=== PATIENT | male | born 1960 | race Caucasian/White ===

== ENCOUNTER 2018-03-20 10:26 | Emergency (ER) | payer OTHER ==
[2018-03-20] MEDS ORDERED: Sodium Chloride 0.9% 10 ML Syringe FLUSH PRN (10:48)
--- NOTE | 2018-03-20 10:53 | EDM.PDOC ---
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 No prior h/o CAD. Onset: Today Duration: Hour(s): (1) Quality: Reports: Dull Severity: Moderate Worsens with: Denies: Breathing, Movement Associated Symptoms: Reports: Diaphoresis Posterior head & neck Pain Score (Numeric/FACES): 5 L anterior chest & L jaw & neck Pain Score (Numeric/FACES): 4 - Related Data Allergies Allergy/AdvReac Type Severity Reaction Status Date / Time No Known Allergies Allergy Verified 03/17/14 10:23 Home Meds: Home Meds Naproxen 500 mg PO BID 03/17/14 [History] Past Medical History - Past Health History Medical/Surgical History: Denies Medical/Surgical History Cardiovascular History: Denies: CAD, [place] Neurological History: Denies: Cerebral Aneurysms Social & Family History - Family History Cardiac: Reports: None - Tobacco Use Smoking Status *Q: Never Smoker - Alcohol Use Alcohol Use History: Yes Alcohol Use Frequency: Rarely - Recreational Drug Use Recreational Drug Use: No ED ROS GENERAL - Review of Systems Review Of Systems: ROS reveals no pertinent complaints other than HPI. ED EXAM, GENERAL - Physical Exam Exam: See Below Exam Limited By: No Limitations General Appearance: Alert, WD/WN, No Apparent Distress Eye Exam: Bilateral Eye: Foreign Body, PERRL Ears: Normal External Exam Nose: Normal Inspection Throat/Mouth: No Airway Compromise Head: Atraumatic, Normocephalic Neck: Full Range of Motion Respiratory/Chest: No Respiratory Distress, Lungs Clear, Normal Breath Sounds Cardiovascular: Regular Rate, Rhythm, No Murmur (Male) Exam: Deferred Rectal (Males) Exam: Deferred Back Exam: Full Range of Motion Extremities: Normal Range of Motion Neurological: Alert, No Motor/Sensory Deficits Psychiatric: Normal Affect, Normal Mood Skin Exam: Warm, Dry, Intact EKG INTERPRETATION EKG Date: 03/20/18 Time: 10:36 Rhythm: NSR Rate (Beats/Min): 74 [place]: Normal P-Wave: Present QRS: RBBB ST-T: Normal QT: Normal Comparison: NA - No Prior EKG EKG Interpretation Comments: EKG #2 @15:59 shows no changes Course - Vital Signs Last Recorded V/S: Last Vital Signs Temp 36.8 C 03/20/18 10:28 Pulse 78 03/20/18 16:13 Resp 18 03/20/18 10:28 BP 132/73 03/20/18 16:13 Pulse Ox 99 03/20/18 10:28 - Orders/Labs/Meds Orders: Active Orders 24 hr Category Date Time Status Ang Chest [CT] Stat Exams 03/20/18 14:28 Taken Chest 2V [CR] Stat Exams 03/20/18 10:45 Taken Head wo Cont [CT] Stat Exams 03/20/18 10:46 Taken Sodium Chloride 0.9% [Normal Saline] 1,000 ml Med 03/20/18 11:00 Active IV ASDIRECTED Sodium Chloride 0.9% [Saline Flush] Med 03/20/18 10:48 Active 10 ml FLUSH ASDIRECTED PRN Saline Lock Insert [OM.PC] Routine Oth 03/20/18 10:48 Ordered EKG 12 Lead [EK] Stat Ther 03/20/18 10:45 Ordered EKG 12 Lead [EK] Stat Ther 03/20/18 15:56 Ordered Medication Orders Sodium Chloride (Normal Saline) 1,000 mls @ 200 mls/hr IV ASDIRECTED JASBIR Last Admin: 03/20/18 11:30 Dose: 200 mls/hr Sodium Chloride (Saline Flush) 10 ml FLUSH ASDIRECTED PRN PRN Reason: Keep Vein Open Last Admin: 03/20/18 10:50 Dose: 10 ml Labs: Laboratory Tests 03/20/18 03/20/18 03/20/18 Range/Units 10:40 10:40 10:40 WBC 3.8 L (4.5-12.0) X10-3/uL RBC 4.72 (4.30-5.75) x10(6)uL Hgb 15.1 (11.5-15.5) g/dL Hct 44.3 (30.0-51.3) % MCV 93.9 (80-96) fL MCH 31.9 (27.7-33.6) pg MCHC 34.0 (32.2-35.4) g/dL RDW 12.9 (11.5-15.5) % Plt Count 127 (125-369) X10(3)uL MPV 8.6 (7.4-10.4) fL Neut % (Auto) 63.7 (46-82) % Lymph % (Auto) 27.4 (13-37) % Keith % (Auto) 7.2 (4-12) % Eos % (Auto) 1 (1.0-5.0) % Baso % (Auto) 1 (0-2) % Neut # (Auto) 2.5 (1.6-8.3) # Lymph # (Auto) 1.0 (0.6-5.0) # Keith # (Auto) 0.3 (0.0-1.3) # Eos # (Auto) 0.0 (0.0-0.8) # Baso # (Auto) 0.0 (0.0-0.2) # PT 10.2 (8.7-11.1) INR 1.05 (0.89-1.13) D-Dimer, Quantitative (0.0-0.59) mg/LFEU Sodium 138 (135-145) mmol/L Potassium 4.2 (3.5-5.3) mmol/L Chloride 102 (100-110) mmol/L Carbon Dioxide 26 (21-32) mmol/L BUN 13 (7-18) mg/dL Creatinine 1.0 (0.70-1.30) mg/dL Est Cr Clr Drug Dosing TNP Estimated GFR (MDRD) > 60 (>60) BUN/Creatinine Ratio 13.0 (9-20) Glucose 212 H (80-116) mg/dL Calcium 9.4 (8.6-10.2) mg/dL Total Bilirubin 0.9 (0.1-1.3) mg/dL AST 38 H (5-25) IU/L ALT 84 H (12-36) U/L Alkaline Phosphatase 49 L (56-112) IU/L Troponin I (<0.017-0.056) ng/mL Total Protein 7.7 (6.0-8.0) g/dL Albumin 3.9 (3.5-5.2) g/dL Globulin 3.8 g/dL Albumin/Globulin Ratio 1.0 09/19/18 09/19/18 09/19/18 Range/Units 10:40 10:40 14:45 WBC (4.5-12.0) X10-3/uL RBC (4.30-5.75) x10(6)uL Hgb (11.5-15.5) g/dL Hct (30.0-51.3) % MCV (80-96) fL MCH (27.7-33.6) pg MCHC (32.2-35.4) g/dL RDW (11.5-15.5) % Plt Count (125-369) X10(3)uL MPV (7.4-10.4) fL Neut % (Auto) (46-82) % Lymph % (Auto) (13-37) % Keith % (Auto) (4-12) % Eos % (Auto) (1.0-5.0) % Baso % (Auto) (0-2) % Neut # (Auto) (1.6-8.3) # Lymph # (Auto) (0.6-5.0) # Keith # (Auto) (0.0-1.3) # Eos # (Auto) (0.0-0.8) # Baso # (Auto) (0.0-0.2) # PT (8.7-11.1) INR (0.89-1.13) D-Dimer, Quantitative 7.11 H (0.0-0.59) mg/LFEU Sodium (135-145) mmol/L Potassium (3.5-5.3) mmol/L Chloride (100-110) mmol/L Carbon Dioxide (21-32) mmol/L BUN (7-18) mg/dL Creatinine (0.70-1.30) mg/dL Est Cr Clr Drug Dosing Estimated GFR (MDRD) (>60) BUN/Creatinine Ratio (9-20) Glucose (80-116) mg/dL Calcium (8.6-10.2) mg/dL Total Bilirubin (0.1-1.3) mg/dL AST (5-25) IU/L ALT (12-36) U/L Alkaline Phosphatase (56-112) IU/L Troponin I < 0.017 L < 0.017 L (<0.017-0.056) ng/mL Total Protein (6.0-8.0) g/dL Albumin (3.5-5.2) g/dL Globulin g/dL Albumin/Globulin Ratio Meds: Medications Generic Name Dose Route Start Last Admin Trade Name Freq PRN Reason Stop Dose Admin Sodium Chloride 1,000 mls @ 200 mls/hr 03/20/18 11:00 03/20/18 11:30 Normal Saline IV 200 mls/hr ASDIRECTED JASBIR Administration Sodium Chloride 10 ml 03/20/18 10:48 03/20/18 10:50 Saline Flush FLUSH 10 ml ASDIRECTED PRN Administration Keep Vein Open Discontinued Medications Generic Name Dose Route Start Last Admin Trade Name Freq PRN Reason Stop Dose Admin Aspirin 324 mg 03/20/18 12:06 03/20/18 10:35 Aspirin PO 03/20/18 12:07 324 mg ONETIME ONE Administration Iopamidol 80 ml 03/20/18 14:19 03/20/18 14:33 Isovue-370 (76%) IV 03/20/18 14:20 80 ml . DIRECTED ONE Administration Metoprolol Tartrate 25 mg 03/20/18 15:59 03/20/18 16:13 Lopressor PO 03/20/18 16:00 25 mg ONETIME ONE Administration Morphine Sulfate 4 mg 03/20/18 14:15 03/20/18 14:55 Morphine IVPUSH 03/20/18 14:16 Not Given ONETIME ONE Morphine Sulfate Confirm 03/20/18 14:45 03/20/18 14:54 Morphine Sulfate Administered 03/20/18 14:46 4 mg Dose Administration 4 mg .ROUTE .STK-MED ONE Morphine Sulfate 4 mg 03/20/18 16:18 Morphine IVPUSH 03/20/18 16:19 ONETIME ONE Nitroglycerin 0.4 mg 03/20/18 12:06 03/20/18 12:45 Nitrostat SL 0.4 mg Q5M PRN Administration Chest Pain Ondansetron HCl 4 mg 03/20/18 14:16 03/20/18 14:52 Zofran IVPUSH 03/20/18 14:17 4 mg ONETIME ONE Administration Pantoprazole Sodium 40 mg 03/20/18 13:08 03/20/18 13:18 Protonix Iv IVPUSH 03/20/18 13:09 40 mg ONETIME ONE Administration - Radiology Interpretation Free Text/Narrative:: CXR: NAD CT Head: NAD CTA Chest: Suboptimal opacification of the pulmonary arteries. No large central pulmonary embolus is identified, the remainder of the pulmonary arteries cannot be adequately evaluated. - Re-Assessments/Exams Free Text/Narrative Re-Assessment/Exam: 03/20/18 16:27 Minimal improvement after NTG and Morphine. 03/20/18 16:31 Dr. Saucedo accepts patient for transfer to [facility]. Departure - Departure Time of Disposition: 16:31 Disposition: DC/Tfer to [facility] 02 Reason for Transfer *Q: Other (Cardiology consult) Condition: Fair Clinical Impression: Chest pain Qualifiers: Chest pain type: unspecified Qualified Code(s): R07.9 - Chest pain, unspecified Referrals: [facility] [place], [employer]ATOR [employer]ER [Primary Care Provider] - Forms: ED Department Discharge - My Orders Last 24 Hours: My Active Orders 03/20/18 10:45 Chest 2V [CR] Stat EKG 12 Lead [EK] Stat 03/20/18 10:46 Head wo Cont [CT] Stat 03/20/18 10:48 Sodium Chloride 0.9% [Saline Flush] 10 ml FLUSH ASDIRECTED PRN Saline Lock Insert [OM.PC] Routine 03/20/18 11:00 Sodium Chloride 0.9% [Normal Saline] 1,000 ml IV ASDIRECTED 03/20/18 14:28 Ang Chest [CT] Stat 03/20/18 15:56 EKG 12 Lead [EK] Stat - Assessment/Plan Last 24 Hours: My Active Orders 03/20/18 10:45 Chest 2V [CR] Stat EKG 12 Lead [EK] Stat 03/20/18 10:46 Head wo Cont [CT] Stat 03/20/18 10:48 Sodium Chloride 0.9% [Saline Flush] 10 ml FLUSH ASDIRECTED PRN Saline Lock Insert [OM.PC] Routine 03/20/18 11:00 Sodium Chloride 0.9% [Normal Saline] 1,000 ml IV ASDIRECTED 03/20/18 14:28 Ang Chest [CT] Stat 03/20/18 15:56 EKG 12 Lead [EK] Stat
[2018-03-20] MEDS ORDERED: Sodium Chloride 0.9% 1,000 ML IV SCH (11:00)
[2018-03-20] MEDS ORDERED: Aspirin 81 MG Tab.Chew PO ONE (12:06)
[2018-03-20] MEDS: Nitroglycerin 0.4 MG Tab.SL SL PRN ×3 (12:20→12:45)
[2018-03-20] MEDS ORDERED: Pantoprazole 40 MG Vial IVPUSH ONE (13:08)
[2018-03-20] MEDS ORDERED: Morphine 4 MG/ML Syringe IVPUSH ONE ×2 (14:15→16:18)
[2018-03-20] MEDS ORDERED: Ondansetron 4 MG/2 ML SDV IVPUSH ONE (14:16)
[2018-03-20] MEDS ORDERED: Iopamidol 755 Mg/ML 100 ML Bottle IV ONE (14:19)
[2018-03-20] MEDS ORDERED: Metoprolol Tartrate 25 MG Tab PO ONE (15:59)
[2018-03-20] MEDS ORDERED: Nitroglycerin 0.2 MG/HR Transdermal Patch TRDERM ONE (16:27)
[2018-03-20] MEDS ORDERED: Nitroglycerin 2% Oint 1 GM UD Packet TOP ONE (16:29)
[2018-03-20 18:42] VITALS: BP 128/72
== END 2018-03-20 15:33 ==
LOC: FB.ED 10:26
DX: R07.9 Chest pain, unspecified (principal)
CPT/HCPCS: 36415; 70450; 71046; 71275; 80053; 84484; 85025; 85379; 85610; 93005; 96361; 96374; 96375; 96376; 99285; A9270-GY; C9113; J2270; J2405; J7030; J7050; Q9967

== ENCOUNTER → 2024-11-19 | Day surgery (SDC) | payer OTHER ==
[~2024-11-19] MED LIST: Ketamine 500 mg/10 ML MDV IV ONE; Lidocaine 2% 100 MG/5 ML Syringe IVPUSH ONE; Midazolam 1 MG/ML 2 ML SDV IV ONE; Phenylephrine 0.5% Nasal Spray 15 ML Bot NAS ONE; Propofol 200 MG/20 ML SDV IV ONE; Sodium Chloride 0.9% 10 ML Syringe FLUSH PRN
[2024-11-19] MEDS: Lactated Ringers 1,000 ML IV SCH (07:52)
[2024-11-19] MEDS: Simethicone Drops 40 MG/0.6 ML 30 ML Bottle ONE (08:50)
[2024-11-19 10:34] VITALS: BP 135/78; PULSE 62
== END | disposition home or self-care (01) ==
LOC: FB.SDS 07:19
PROVIDERS: ATTEND Surgery
DX: D12.0 Benign neoplasm of cecum (principal); D12.6 Benign neoplasm of colon, unspecified; Z86.0101 Personal history of adenomatous and serrated colon polyps; E11.9 Type 2 diabetes mellitus without complications; N40.0 Benign prostatic hyperplasia without lower urinary tract symptoms; Z79.84 Long term (current) use of oral hypoglycemic drugs; Z79.899 Other long term (current) drug therapy
CPT/HCPCS: 00811; 45381; 45385; 82947; 88305; A9270; J2250; J2704; J3490; J7120